=== PATIENT | female | born 1975 | race American Indian/Alaskan Native ===

== ENCOUNTER 2019-12-23 17:16 | Emergency (ER) | payer MEDICAID, OTHER ==
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
--- NOTE | 2019-12-23 19:35 | XRay Report ---
LUMBAR SPINE 3 VIEWS INDICATION / CLINICAL INFORMATION: pain. COMPARISON: None available. FINDINGS: VERTEBRAE: No acute fracture. No significant malalignment. DISC SPACES / FACET JOINTS:No significant abnormality. PARASPINAL SOFT TISSUES:No significant abnormality. ADDITIONAL FINDINGS: Bilateral tubal occlusion devices are present in the pelvis. Signer Name: Jose F Salvador MD Signed: 12/23/2019 7:30 PM Workstation Name: [id number]
[2019-12-23 20:05] VITALS: BP 175/104
== END 2019-12-23 20:03 | disposition home or self-care (01) ==
LOC: ED 17:16
DX: S39.012A Strain of muscle, fascia and tendon of lower back, initial encounter (principal); M25.561 Pain in right knee; M25.512 Pain in left shoulder; R51 Headache; F32.9 Major depressive disorder, single episode, unspecified; F41.9 Anxiety disorder, unspecified; F43.10 Post-traumatic stress disorder, unspecified; F17.200 Nicotine dependence, unspecified, uncomplicated; Z98.890 Other specified postprocedural states; Z79.899 Other long term (current) drug therapy; V43.52XA Car driver injured in collision with other type car in traffic accident, initial encounter; Y93.89 Activity, other specified; Y92.488 Other paved roadways as the place of occurrence of the external cause; Y99.8 Other external cause status
CPT/HCPCS: 72100; 99283

== ENCOUNTER 2020-09-15 14:57 | Emergency (ER) | payer MEDICAID ==
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
[2020-09-15 18:05] LABS: HCG Qualitative,Urine Negative (Negative)
[2020-09-15 18:06] LABS: Bilirubin,Urine NEG (Negative); Blood,Urine NEG (Negative); Color,Urine Yellow (Yellow); Mucus,Urine FEW /HPF; Protein,Urine <15 mg/dL mg/dL (Negative); Urobilinogen,Urine < 2.0 mg/dL (<2.0)
[2020-09-15 19:21] VITALS: BP 155/76
== END 2020-09-15 19:21 | disposition home or self-care (01) ==
LOC: ED 14:57
DX: S39.012A Strain of muscle, fascia and tendon of lower back, initial encounter (principal); F32.9 Major depressive disorder, single episode, unspecified; F41.9 Anxiety disorder, unspecified; F17.200 Nicotine dependence, unspecified, uncomplicated; Z98.890 Other specified postprocedural states; Z79.1 Long term (current) use of non-steroidal anti-inflammatories (NSAID); Z79.899 Other long term (current) drug therapy; V49.49XA Driver injured in collision with other motor vehicles in traffic accident, initial encounter; Y93.89 Activity, other specified; Y92.410 Unspecified street and highway as the place of occurrence of the external cause; Y99.8 Other external cause status
CPT/HCPCS: 81001; 81025

== ENCOUNTER 2021-12-15 16:49 | Emergency (ER) | payer MEDICAID, OTHER ==
[2021-12-15 17:50] VITALS: BP 133/83
--- NOTE | 2021-12-16 01:53 | XRay Report ---
XR chest routine 2V INDICATION / CLINICAL INFORMATION: catrachito sob-. COMPARISON: 10/05/2018 FINDINGS: SUPPORT DEVICES: None. HEART /PULMONARY VASCULATURE: No significant abnormality. LUNGS / PLEURA: No significant pulmonary or pleural abnormality. No pneumothorax. ADDITIONAL FINDINGS: No significant additional findings. IMPRESSION: 1. No acute findings. Signer Name: Remy Nowak MD Signed: 12/16/2021 1:48 AM Workstation Name: [id number]
[2021-12-16 02:20] LABS: Hematocrit 30.9 % (30.3-42.9); Hemoglobin 9.8 gm/dl (10.1-14.3); Mean Corpuscular Volume 96 fl (79-97); Red Blood Count 3.22 M/mm3 (3.65-5.03)
[2021-12-16 02:21] LABS: Mean Corpuscular HGB Conc 32 % (30-34); Platelet Count 370 K/mm3 (140-440); Red Cell Distribution Width 15.5 % (13.2-15.2)
[2021-12-16 02:30] LABS: BUN/Creatinine Ratio 15; Blood Urea Nitrogen 12 mg/dL (7-17); Calcium 9.3 mg/dL (8.4-10.2); Hemolysis Index 2
--- NOTE | 2021-12-16 03:03 | Emergency Department Report ---
ED General Adult HPI - General Chief complaint: Headache Stated complaint: FLAVIA Time Seen by Provider: 12/16/21 00:49 Source: patient Mode of arrival: Ambulatory Limitations: No Limitations - History of Present Illness Initial comments: 46-year-old [place] female [facility] emerge department complaining of a few week history of of various dizziness episodes bradykinesia but appears to be more associated with her position changes and when going from sit to stand or leaning over. She also been having some more issues with wheezing coughing and bronchitis and think she is having a flareup of the GERD evaluate as well. She reports no hemoptysis hematemesis hematochezia, no headache no blurry vision -: Gradual Radiation: non-radiation Severity scale (0 -10): 8 Quality: dull Consistency: constant Improves with: none Worsens with: none Associated Symptoms: denies other symptoms, cough, other (No tinnitus dizziness appears to be positional.). denies: confusion, chest pain, loss of appetite, rash, seizure, syncope, weakness Treatments Prior to Arrival: none - Related Data Home Medications Medication Instructions Recorded Confirmed Last Taken Bupropion HCl [Wellbutrin XL] 300 mg PO DAILY 04/21/15 05/04/15 1 Day Ago ~05/03/15 Trazodone HCl [traZODone] 150 mg PO QHS 04/21/15 05/04/15 3 Days Ago ~05/01/15 estradioL [Estrace] 1 mg PO QDAY 04/21/15 05/04/15 2 Days Ago ~05/02/15 hydroCHLOROthiazide [Hctz] 12.5 mg PO QDAY 04/21/15 05/04/15 3 Days Ago ~05/01/15 lamoTRIgine [LaMICtal] 25 mg PO HS 05/04/15 05/05/15 1 Day Ago ~05/03/15 Previous Rx's Medication Instructions Recorded Last Taken Type Oxycodone HCl/Acetaminophen 1 each PO Q6HR PRN #14 tablet 04/21/15 1 Day Ago Rx [Percocet 7.5-325 mg] ~05/03/15 Phenazopyridine [Pyridium] 100 mg PO TID #6 tablet 05/05/15 Unknown Rx levoFLOXacin [Levaquin TAB] 500 mg PO Q24H #7 tablet 05/05/15 Unknown Rx Azithromycin [Zithromax Z-WESTLEY] 250 mg PO DAILY #6 tablet 10/05/18 Unknown Rx Benzonatate [Tessalon Perle] 100 mg PO Q8H PRN #20 capsule 10/05/18 Unknown Rx Ibuprofen [Motrin] 600 mg PO Q8H PRN #20 tablet 10/05/18 Unknown Rx Prednisone [predniSONE 10 mg 10 mg PO .TAPER #1 tab.ds.pk 10/05/18 Unknown Rx (6-Day Pack, 21 Tabs)] Naproxen [EC-Naprosyn] 500 mg PO BID PRN #14 tablet. 12/23/19 Unknown Rx methOCARBAMOL [Robaxin TAB] 500 mg PO QHS PRN #10 tab 12/23/19 Unknown Rx Naproxen [EC-Naproxen] 500 mg PO BID PRN #14 tablet. 09/15/20 Unknown Rx methOCARBAMOL [Robaxin TAB] 500 mg PO BID PRN #14 tab 09/15/20 Unknown Rx Albuterol Mdi (or & Nicu Only) 1 puff IH Q4-6H PRN #1 inha 12/16/21 Unknown Rx [ProAir HFA Inhaler] Benzonatate [Tessalon Perles] 100 mg PO Q8HR #20 capsule 12/16/21 Unknown Rx Meclizine [Antivert] 25 mg PO TID PRN #30 12/16/21 Unknown Rx Allergies Allergy/AdvReac Type Severity Reaction Status Date / Time No Known Allergies Allergy Verified 12/23/19 17:22 ED Review of Systems ROS: Stated complaint: FLAVIA Other details as noted in HPI Comment: All other systems reviewed and negative ED Past Medical Hx - Past Medical History Hx Psychiatric Treatment: Yes (depression, PTSD,anxiety) - Surgical History Additional Surgical History: Essure procedure 02/13/15 [place] - Social History Smoking Status: Current Every Day Smoker Substance Use Type: Alcohol - Medications Home Medications: Home Medications Medication Instructions Recorded Confirmed Last Taken Type Bupropion HCl [Wellbutrin XL] 300 mg PO DAILY 04/21/15 05/04/15 1 Day Ago History ~05/03/15 Oxycodone HCl/Acetaminophen 1 each PO Q6HR PRN #14 tablet 04/21/15 05/04/15 1 Day Ago Rx [Percocet 7.5-325 mg] ~05/03/15 Trazodone HCl [traZODone] 150 mg PO QHS 04/21/15 05/04/15 3 Days Ago History ~05/01/15 estradioL [Estrace] 1 mg PO QDAY 04/21/15 05/04/15 2 Days Ago History ~05/02/15 hydroCHLOROthiazide [Hctz] 12.5 mg PO QDAY 04/21/15 05/04/15 3 Days Ago History ~05/01/15 lamoTRIgine [LaMICtal] 25 mg PO HS 05/04/15 05/05/15 1 Day Ago History ~05/03/15 Phenazopyridine [Pyridium] 100 mg PO TID #6 tablet 05/05/15 Unknown Rx levoFLOXacin [Levaquin TAB] 500 mg PO Q24H #7 tablet 05/05/15 Unknown Rx Azithromycin [Zithromax Z-WESTLEY] 250 mg PO DAILY #6 tablet 10/05/18 Unknown Rx Benzonatate [Tessalon Perle] 100 mg PO Q8H PRN #20 capsule 10/05/18 Unknown Rx Ibuprofen [Motrin] 600 mg PO Q8H PRN #20 tablet 10/05/18 Unknown Rx Prednisone [predniSONE 10 mg 10 mg PO .TAPER #1 tab.ds.pk 10/05/18 Unknown Rx (6-Day Pack, 21 Tabs)] Naproxen [EC-Naprosyn] 500 mg PO BID PRN #14 tablet. 12/23/19 Unknown Rx methOCARBAMOL [Robaxin TAB] 500 mg PO QHS PRN #10 tab 12/23/19 Unknown Rx Naproxen [EC-Naproxen] 500 mg PO BID PRN #14 tablet. 09/15/20 Unknown Rx methOCARBAMOL [Robaxin TAB] 500 mg PO BID PRN #14 tab 09/15/20 Unknown Rx Albuterol Mdi (or & Nicu Only) 1 puff IH Q4-6H PRN #1 inha 12/16/21 Unknown Rx [ProAir HFA Inhaler] Benzonatate [Tessalon Perles] 100 mg PO Q8HR #20 capsule 12/16/21 Unknown Rx Meclizine [Antivert] 25 mg PO TID PRN #30 12/16/21 Unknown Rx ED Physical Exam - General Limitations: No Limitations General appearance: alert, in no apparent distress - Head Head exam: Present: atraumatic, normocephalic - Eye Eye exam: Present: normal appearance, PERRL, EOMI Pupils: Present: normal accommodation - ENT ENT exam: Present: normal exam, mucous membranes moist - Neck Neck exam: Present: normal inspection, full ROM - Respiratory Respiratory exam: Present: normal lung sounds bilaterally, rhonchi. Absent: respiratory distress, wheezes, rales, chest wall tenderness, accessory muscle use, decreased breath sounds, prolonged expiratory - Cardiovascular Cardiovascular Exam: Present: regular rate, normal rhythm. Absent: systolic murmur, diastolic murmur, rubs, gallop - GI/Abdominal GI/Abdominal exam: Present: soft, normal bowel sounds - Extremities Exam Extremities exam: Present: normal inspection, full ROM, normal capillary refill - Back Exam Back exam: Present: normal inspection. Absent: CVA tenderness (R), CVA tenderness (L), paraspinal tenderness, vertebral tenderness - Neurological Exam Neurological exam: Present: alert, oriented X3, CN II-XII intact, normal gait - Psychiatric Psychiatric exam: Present: normal affect, normal mood - Skin Skin exam: Present: warm, dry, intact, normal color. Absent: rash, diaphoretic, erythema, urticaria, petechiae, pallor, abrasion, ecchymosis ED Course Vital Signs 12/15/21 17:49 Temperature 98.4 F Pulse Rate 69 Respiratory 18 Rate Blood Pressure 133/83 [Right] O2 Sat by Pulse 100 Oximetry ED Medical Decision Making - Lab Data Result diagrams: 12/16/21 01:44 12/16/21 01:44 - Radiology Data Radiology results: report reviewed [facility] [address] [place] [address] XRay Report Signed Patient: ADAM ACE MR#: [id number] : 1975 Acct:[id number] Age/Sex: 46 / F ADM Date: 12/15/21 Loc: ED Attending Dr: Ordering Physician: JANETTE ROMO Date of Service: 12/16/21 Procedure(s): XR chest routine 2V Accession Number(s): [id number] cc: JANETTE ROMO Fluoro Time In Minutes: XR chest routine 2V INDICATION / CLINICAL INFORMATION: sough sob-. COMPARISON: 10/05/2018 FINDINGS: SUPPORT DEVICES: None. HEART /PULMONARY VASCULATURE: No significant abnormality. LUNGS / PLEURA: No significant pulmonary or pleural abnormality. No pneumothorax. ADDITIONAL FINDINGS: No significant additional findings. IMPRESSION: 1. No acute findings. Signer Name: Gerry Nowak MD Signed: 12/16/2021 1:48 AM Workstation Name: [id number] Transcribed By: JS Dictated By: GERRY NOWAK MD Electronically Authenticated By: GERRY NOWAK MD Signed Date/Time: 12/16/21147 DD/ 7 TD/TT: Print - Medical Decision Making This patient presents with acute cough, most consistent with nonemergent cough. Differential diagnosis includes bronchitis, pneumonia, hyperreactive airway disease, allergies, GERD, postnasal drip. Presentation not consistent with acute bacterial pneumonia, influenza, asthma, transient airway hyperresponsiveness. Presentation not consistent with chronic causes of cough (including GERD, asthma, postnasal discharge, medication side effect, CHF, lung cancer or mass). Plan: CXR, supportive care, reassess Critical care attestation.: If time is entered above; I have spent that time in minutes in the direct care of this critically ill patient, excluding procedure time. ED Disposition Clinical Impression: Dizziness, Acute bronchitis Disposition: 01 HOME / SELF CARE / HOMELESS Is pt being admited?: No Does the pt Need Aspirin: No Condition: Stable Instructions: Acute Bronchitis (ED), Acute Bronchitis, Adult, [id number], Dizziness Prescriptions: Meclizine [Antivert] 25 mg PO TID PRN #30 PRN Reason: Vertigo Referrals: JAMES TURNER MD [Primary Care Provider] - 3-5 Days HAMIDA MORALES MD [Staff Physician] - 3-5 Days
== END 2021-12-16 04:20 | disposition home or self-care (01) ==
LOC: ED 16:49
DX: J20.9 Acute bronchitis, unspecified (principal); R42 Dizziness and giddiness; F41.8 Other specified anxiety disorders; F17.200 Nicotine dependence, unspecified, uncomplicated
CPT/HCPCS: 36415; 71046; 80048; 85027; 99283